=== PATIENT | female | born 2000 | race Caucasian/White ===

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

== ENCOUNTER 2019-04-10 17:46 | Emergency (ER) | payer OTHER ==
[~2019-04-10] VITALS: Ht 170.2 cm; Wt 104.0 kg
[2019-04-10] MEDS ORDERED: ONDANSETRON HCL 4 MG ORAL DISINTEGRATING TAB PO ONE (18:15)
[2019-04-10] MEDS ORDERED: KETOROLAC TROMETHAMINE 60 MG/2 ML VIAL IM ONE (18:15)
[2019-04-10] MEDS ORDERED: ONDANSETRON HCL 4 MG ORAL DISINTEGRATING TAB ONE (18:32)
[2019-04-10] MEDS ORDERED: KETOROLAC TROMETHAMINE 60 MG/2 ML VIAL ONE (18:32)
--- NOTE | 2019-04-10 18:59 | Diagnostic Imaging Report ---
EXAMINATION: CT of the abdomen and pelvis without contrast. TECHNIQUE: Helical CT images of the abdomen and pelvis were performed from the lung bases to the lesser trochanters. No intravenous contrast was given per renal stone protocol. Coronal and sagittal reformatted images were obtained.Dose modulation, iterative reconstruction, and/or weight based adjustment of the mA/kV was utilized to reduce the radiation dose to as low as reasonably achievable. COMPARISON: None. CLINICAL HISTORY:Left flank pain DISCUSSION: ABSENCE OF INTRAVENOUS CONTRAST DECREASES SENSITIVITY FOR DETECTION OF FOCAL LESIONS AND VASCULAR PATHOLOGY. ABDOMEN/PELVIS: LOWER THORAX: Unremarkable. HEPATOBILIARY:No focal hepatic lesions. No biliary ductal dilation. The gallbladder is normal. SPLEEN: No splenomegaly. PANCREAS: No focal masses or ductal dilatation. ADRENALS: No adrenal nodules. KIDNEYS/URETERS: 3 mm calculus in the right kidney. PELVIC ORGANS/BLADDER: The bladder is normal. PERITONEUM/RETROPERITONEUM: No free air or fluid. LYMPH NODES: No intra-abdominal,retroperitoneal, pelvic or inguinal lymphadenopathy. VESSELS: Limited evaluation. GI TRACT: No distention or wall thickening. The appendix is normal. BONES AND SOFT TISSUES: No bony destructive lesions. No soft tissue abnormalities. IMPRESSION: Nonobstructing 3 mm right renal calculus. Normal appendix. Signed by: Dr. Praveen Larson M.D. on 04/10/2019 6:56 PM
== END 2019-04-10 19:30 | disposition home or self-care (01) ==
LOC: FSED 17:46
DX: R30.0 Dysuria (principal); R11.0 Nausea; R10.9 Unspecified abdominal pain; M54.5 Low back pain; N20.0 Calculus of kidney
CPT/HCPCS: 74176; 99283; J1885; Q0162

== ENCOUNTER 2019-06-11 21:02 | Emergency (ER) | payer SELFPAY ==
[~2019-06-11] VITALS: Ht 170.2 cm; Wt 103.9 kg
[2019-06-11 22:39] LABS: PREGNANCY TEST, URINE NEGATIVE (NEGATIVE)
[2019-06-11 22:46] LABS: BILIRUBIN,URINE NEGATIVE (NEGATIVE); CLARITY,URINE CLOUDY (CLEAR); COLOR,URINE YELLOW (YELLOW); KETONES,URINE NEGATIVE (NEGATIVE); LEUKOCYTE ESTERASE ,URINE TRACE (NEGATIVE); NITRITE,URINE NEGATIVE (NEGATIVE); PROTEIN,URINE DIPSTICK NEGATIVE (NEGATIVE); URINE UROBILINOGEN 0.2 mg/dL (0.2 - 1)
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
[2019-06-11 23:02] LABS: BACTERIA,URINE MANY /HPF; EPITHELIAL CELLS,URINE FEW /LPF; WBC,URINE (MAN) 21-50 /HPF (0-5)
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
[2019-06-12] MEDS ORDERED: ONDANSETRON HCL 4 MG ORAL DISINTEGRATING TAB PO ONE (00:45)
[2019-06-12] MEDS ORDERED: HYDROCODONE/APAP 10MG-325MG TAB PO ONE (00:45)
[2019-06-12 02:11] VITALS: BP 122/77
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
== END 2019-06-12 02:50 | disposition home or self-care (01) ==
LOC: ER 21:02
DX: S62.325A Displaced fracture of shaft of fourth metacarpal bone, left hand, initial encounter for closed fracture (principal); S60.212A Contusion of left wrist, initial encounter; S50.12XA Contusion of left forearm, initial encounter; S50.02XA Contusion of left elbow, initial encounter; S70.12XA Contusion of left thigh, initial encounter; S70.11XA Contusion of right thigh, initial encounter; N30.90 Cystitis, unspecified without hematuria; V43.52XA Car driver injured in collision with other type car in traffic accident, initial encounter; Y92.488 Other paved roadways as the place of occurrence of the external cause
CPT/HCPCS: 70450; 71046; 73080; 73090; 73110 ×2; 73130 ×2; 81001; 81025; 99284; Q0162